=== PATIENT | male | born 1965 | race Hispanic/Latino ===

== ENCOUNTER 2018-02-02 07:05 | Day surgery (SDC) | payer MEDICAID ==
[2018-02-02 07:55] VITALS: RESP 19; TEMP 97.1; O2SAT 100
[2018-02-02] MEDS ORDERED: Lactated Ringer's 500 ML IV SCH (10:30)
[2018-02-02] MEDS ORDERED: Lactated Ringer's 500 ML IV ONE (10:32)
[2018-02-02] MEDS ORDERED: Propofol 10 mg/ml Inj (20 ML) ONE ×2 (10:37→10:56)
[2018-02-02] MEDS ORDERED: Midazolam 2 MG/2 ML VIAL ONE (10:37)
[2018-02-02 10:39] VITALS: PULSE 68
[2018-02-02 11:51] VITALS: BP 126/75
== END 2018-02-02 11:53 | disposition home or self-care (01) ==
LOC: C.ENDO 07:05
PROVIDERS: ATTEND Internal Medicine Gastroenterology
DX: Z12.11 Encounter for screening for malignant neoplasm of colon (principal); D12.5 Benign neoplasm of sigmoid colon; D12.3 Benign neoplasm of transverse colon; K64.8 Other hemorrhoids
CPT/HCPCS: 45380; 45385; 88305; J2250; J2704; J7120